=== PATIENT | female | born 1980 | race Caucasian/White ===

== ENCOUNTER 2018-04-08 12:55 | Inpatient (IN) | payer BC ==
--- NOTE | 2018-04-08 16:39 | HP ---
General Information - General Information Maternal Age: 37 Grav: 4 Para: 3 SAB: 0 IEA: 0 Estimated Due Date: 04/08/18 Determined By: LMP Maternal Blood Type and Rh: O Positive - Results this Serology/RPR Result: Non-Reactive Rubella Result: Immune HBsAg Result: Negative HIV Result: Negative GBS Culture Result: Negative Past Medical History Delivery History: Hx Uncomplicated Vaginal Delivery - 2nd and 3rd delivery uncomplicated, Hx Complicated Vaginal Delivery - 1st delivery 3rd degree laceration Pertinent Past Medical History: See Records - abnormal moles, kidney stones, eczema Pertinent Past Surgical History: See Records - wisdom tooth extraction Pertinent Family History: Non-Contributory - Antepartal Records Antepartal Records: Reviewed, Uncomplicated Review of Systems Constitutional: Comfortable CV Complaint: No Respiratory: Shortness of Breath: No Gastrointestinal: No Nausea/Vomiting, Normal Bowel Movement Genitourinary: No Dysuria, No Bleeding, No Leaking Fluid Musculoskeletal: No Epigastric Pain, Contractions Neurological: No Headache, No Visual Changes Movement: Normal Exam Allergies/Adverse Reactions: Allergies No Known Allergies Allergy (Verified 04/08/18 13:43) T-99.6, P-94, R-18, BP-108/65, O2 sat- 96% - Measurements Height: 5 ft 6 in Weight: 80.739 kg Weight in lbs: 178.330841 Body Mass Index (BMI): 28.7 Pre- Weight: 65.771 kg Weight Gained This : 33 lbs and 0 ozs - Exam Breast: Breast Exam Deferred CVA: No CVA Tenderness Heart: Normal Rhythm/Heart Sounds HEENT: No Significant Findings Lungs: Clear Bilaterally Rectal: Rectal Exam Deferred Reflexes: DTR 2+ Thyroid: No Thyromegaly - Abdominal Exam Abdomen Exam: Non-Tender, Fundal Height Consistent with Dates - Ultrasound/Biophysical Profile Ultrasound Status: Not Done Targeted Exam Findings See L&D Outpatient Visit Provider Note for Findings: N/A Estimated Weight: 7.5# Cervical Exam: 5cm Effacement: 100% Station: 0 Presenting Part: Vertex Membrane Status: Intact Bleeding/Discharge: Bloody Show EFM Findings - External Monitor Findings Baseline Heart Rate: 120 External Monitor Findings: Accelerations Present, No Pattern of Variable or Late Decelerations, Variability Moderate, Baseline Stable Contractions: Irregular Contraction Frequency: 4-10 Assessment/Plan - Assessment 37 year old at 40 0/7 weeks gestation in active labor - Plan Plan: Admit - Anticipate Vaginal Delivery - Date/Time of Admission Date of Admission: 04/08/18 Time of Admission: 16:00
[2018-04-08] MEDS ORDERED: OXYTOCIN* 10 UNITS/ML 1 ML VIAL IM ONE (20:14)
[2018-04-08] MEDS ORDERED: Dibucaine 1% 28.35 GM TUBE PR PRN (20:14)
[2018-04-08] MEDS ORDERED: Glycerin ADULT SUPP PR PRN (20:14)
[2018-04-08] MEDS ORDERED: Witch Hazel PAD* JAR TOPICAL PRN (20:14)
[2018-04-08] MEDS ORDERED: Acetaminophen TAB* 325 MG PO PRN (20:14)
[2018-04-08] MEDS: Ibuprofen TAB* 600 MG PO PRN (20:37)
[2018-04-08] MEDS ORDERED: oxyCODONE/Acetamin 5/325 MG* TAB PO PRN (23:25)
[2018-04-09 07:03] LABS: ABS Basophils 0.1 10^3/ul (0-0.2); ABS Eosinophils 0.2 10^3/ul (0-0.6); ABS Lymphocytes 2.1 10^3/ul (1.0-4.8); ABS Monocytes 0.9 10^3/ul (0-0.8); ABS Neutrophils 10.3 10^3/ul (1.5-7.7); ABS Nucleated RBC 0 10^3/ul; Eosinophil % 1.1 % (0-6); Hematocrit 34 % (35-47); Hemoglobin 11.6 g/dl (12.0-16.0); Lymphocyte % 15.6 % (25-47); Mean Corpuscular HGB Conc 35 g/dl (31-36); Mean Corpuscular Hemoglobin 31 pg (27-31); Mean Corpuscular Volume 89 fL (80-97); Mean Platelet Volume 8.1 um3 (7.4-10.4); Nucleated Red Blood Cells % 0; Platelet Count 219 10^3/ul (150-450); Red Blood Count 3.76 10^6/ul (4.00-5.40); Red Cell Distribution Width 15 % (10.5-15); White Blood Count 13.6 10^3/ul (3.5-10.8)
[2018-04-09] MEDS ORDERED: Ammonia Inhalant* 1 EA AMP ONE (07:44)
[2018-04-09] MEDS: Docusate CAP* 100 MG PO SCH ×3 (07:51→20:45)
[2018-04-09] MEDS: Ibuprofen TAB* 600 MG PO PRN ×3 (07:51→20:45)
--- NOTE | 2018-04-09 12:07 | PROCNOTE ---
[facility] OB: Delivery Note - Delivery A Date of : 04/08/18 Time of : 19:10 [place] Sex: Female Weight at : 3.708 kg Score 1 Minute: 9 Score 5 Minutes: 9 Gestational Age in Weeks and Days at Delivery: 40 Weeks and 0 Days Delivery Method: Spontaneous Vaginal Labor: Spontaneous Did Patient attempt ?: N/A, No Previous Amniotic Fluid: Clear Estimated Blood Loss: 400 Anesthesia/Analgesia: None Delivered By: Regina Turner - Nursery Level of Nursery: Regular/Bedside - Perineum Perineal Injury: 1st Degree Perineal Repair: By Delivering Practioner - Events Delivery Events of Note: Pitocin Only After Delivery - Additional Delivery Notes Additional Delivery Notes: Pt arrived in L&D in active labor, was 4 cm on arrival and steadily progressed to full dilation. Pt utilized the tub, position changes, breathing techniques, and support for pain relief. Pt began pushing spontaneously with full dilation. Infant soon delivered, with slow controlled delivery of the head, OA to DIAMANTE. Shoulders followed without difficulty. to maternal abdomen with vigorous cry. Vaginal bleeding began soon after and cord was clamped at 2 minutes of life and cut by 's father. Pitocin 10 mu IM administered. Placenta delivered alyx side with trailing membranes. Bleeding responded quickly to fundal massage and Pitocin. Clots expressed and bleeding ceased. First degree perineal laceration along site of previous episiotomies was repaired using absorbable suture with good tissue approximation and hemostasis. and mother stable, . Placenta examined and appeared intact and complete. About 1 hour after delivery department supervisor called to report passage of apparent placental tissue. Pt examined and small approx 2 cm diameter piece of placental tissue noted at introitus. Membranes also visible at introitus, teased out using ring forceps. Pt reported that in prior this had occurred after she was discharged home. Throughout this process bleeding was minimal. Fundas firm, bleeding minimal, no further clots expressed or tissue observed. Pt and infant stable, will observe for excessive bleeding or signs of infection, otherwise anticipate normal course.
[2018-04-10] MEDS: Docusate CAP* 100 MG PO SCH ×2 (07:55→08:48)
[2018-04-10] MEDS: Ferrous Gluconate TAB* 324 MG TAB PO SCH ×3 (07:55→08:48)
[2018-04-10 07:58] VITALS: BP 102/60
== END 2018-04-10 12:39 | disposition home or self-care (01) | DRG 560 ==
LOC: MCHOBOUT 12:55 → MCHOB 16:04
PROVIDERS: ADMIT Midwife; ATTEND Midwife
PROC: 10E0XZZ Delivery of Products of Conception, External Approach (ICD-10-PCS; principal; 2018-04-08)
PROC: 0HQ9XZZ Repair Perineum Skin, External Approach (ICD-10-PCS; 2018-04-08)
PROC: 10907ZC Drainage of Amniotic Fluid, Therapeutic from Products of Conception, Via Natural or Artificial Opening (ICD-10-PCS; 2018-04-08)
DX: O70.0 First degree perineal laceration during delivery (principal); O73.1 Retained portions of placenta and membranes, without hemorrhage; Z3A.40 40 weeks gestation of pregnancy; Z37.0 Single live birth
CPT/HCPCS: 36415; 85025; A9270-GY; J2590